=== PATIENT | female | born 1960 | race Caucasian/White ===

== ENCOUNTER 2017-04-20 20:29 | Observation (INO) ==
--- NOTE | 2017-04-20 20:51 | Emergency Department Note ---
Disposition Clinical Impression: Chest pain, History of hypertension, Abnormal EKG, Obesity, Family history of early CAD Disposition: Admitted As Inpatient Referrals: Dani Luna MD [Primary Care Provider] - Forms: ED Satisfaction Letter General Adult HPI - General Chief complaint: ED Chest Pain Stated complaint: CP Time Seen by Provider: 04/20/17 20:37 Source: patient, EMS Limitations: no limitations - History of Present Illness HPI Narrative: 57-year-old female reports emergency department complaining of left-sided chest pain. He pain radiated somewhat to the left arm. No history of weakness or numbness of the arms or legs or unilateral neurologic changes. No slurred speech or facial drooping. There is no history of tearing back pain. The pain started about an hour and a half ago. The patient has no known coronary artery disease but has a history of hypertension and a strong family history of coronary disease. She is a nonsmoker no diabetes no history of DVT PE or cancer. The patient denies trauma there is no pain when moving her chest. She has had some sharp inspiratory pain however. There is no history of back pain, no previous history of aneurysms. There is no history of leg swelling or pain coughing up blood or syncope. No coughing runny nose or ear pain or sore throat. There is no history of abdominal pain and vomiting or diarrhea. The patient denies acute anxiety or insomnia. The patient had a remote cardiac catheterization which was negative. She has never had a cardiac stent. The patient does not usually have chest pain. Pain Scale: 5 All systems ED: reviewed and negative except as stated. Past Medical History - Past Medical History Medical history: Reports: hypertension, thyroid disease Psychiatric history: Reports: no psych history - Social History Smoking Status: Never smoker Smokeless Tobacco Status: No Alcohol use: Reports: none Drug use: Reports: none Physical Exam - General Limitations: no limitations General appearance: alert, in no apparent distress - Head Head exam: atraumatic, normocephalic, normal inspection - Eye Eye exam: Present: normal appearance, PERRL, EOMI - ENT ENT exam: normal exam, normal oropharynx, mucous membranes moist, normal external ear exam - Neck Neck exam: Present: normal inspection, full ROM, trachea midline - Chest Chest inspection: Present: symmetric chest wall rise. Absent: tenderness - Respiratory Respiratory exam: Present: normal lung sounds bilaterally. Absent: respiratory distress, wheezes, accessory muscle use, prolonged expiratory phase - Cardiovascular Cardiovascular exam: Present: regular rate, normal rhythm, normal heart sounds - Abdominal Exam Abdominal exam: Present: soft, Non-Tender, normal bowel sounds. Absent: tenderness, distention, guarding, rebound, rigidity, pulsatile mass - Extremities Exam Extremities exam: Present: normal inspection, full ROM, normal capillary refill. Absent: tenderness, pedal edema, joint swelling, calf tenderness - Expanded Lower Extremity Exam Lower leg exam: Absent: Homans' sign Neurovascular/Tendon exam: Present: normal capillary refill. Absent: pulse deficit, motor deficit, sensory deficit, tendon deficit, extremity cold to touch , pallor - Back Exam Back exam: Present: normal inspection, full ROM. Absent: tenderness, CVA tenderness (R), CVA tenderness (L), vertebral tenderness - Neurological Exam Neurological exam: Present: alert, oriented X3, CN II-XII intact. Absent: motor sensory deficit - Psychiatric Psychiatric exam: Present: normal affect, normal mood - Skin Skin exam: Present: warm, dry, intact, normal color. Absent: rash, cyanosis, diaphoresis, erythema, pallor, mottled Course Vital Signs Temperature 98.6 F 04/20/17 20:30 Pulse Rate 89 04/20/17 20:30 Respiratory Rate 18 04/20/17 20:30 Blood Pressure 136/82 04/20/17 20:30 O2 Sat by Pulse Oximetry 98 04/20/17 20:30 Temperature 98.6 F 04/20/17 20:30 Pulse Rate 80 04/20/17 21:00 Respiratory Rate 22 04/20/17 21:00 Blood Pressure 148/80 04/20/17 21:00 O2 Sat by Pulse Oximetry 96 04/20/17 21:00 Oxygen Delivery Oxygen Delivery Room Air Medical Decision Making - [facility] Narrative Medical decision making narrative: The patient's chest pain is somewhat atypical, she received 4 aspirin in route as well as nitroglycerin. She reports nitroglycerin relieved her pain. The patient's EKG shows significant ST depressions in the anterior lateral leads. Significant changes from previous are noted. He patient has a strong family history of coronary disease, she is over 50, she is somewhat obese has a history of hypertension. Based on her chest pain, abnormal EKG, and noted risk factors for ACS, I thought it would be appropriate to admit the patient to the hospital. I discussed the case with the hospitalist who has accepted the patient to their care. - Lab Data Lab results reviewed: Yes I reviewed the patient's lab results. Result diagrams: 04/20/17 20:44 04/20/17 20:44 Lab Results 04/20/17 04/20/17 04/20/17 Range/Units 20:44 20:44 20:44 WBC 11.2 H (4.3-11.1) K/mcL RBC 4.65 (3.82-4.97) M/mcL Hgb 13.8 (11.5-15.4) g/dL Hct 40.6 (35.3-44.9) % MCV 87.3 (83.0-100.0) fL MCH 29.7 (28.0-33.3) pg MCHC 34.0 (31.6-35.5) g/dL RDW 12.1 (11.5-14.5) % Plt Count 355 (140-400) K/mcL MPV 9.4 (9.4-12.4) fL Immature Gran % 0.5 (0-4) % Seg Neutrophils % 53.5 % Lymphocytes % 35.5 % Monocytes % 8.0 % Eosinophils % 2.0 % Basophils % 0.5 % Neutrophils # 6.0 (1.6-8.9) K/mcL Lymphocytes # 4.0 (0.6-4.6) K/mcL Monocytes # 0.9 (0.0-1.3) K/mcL Eosinophils # 0.2 (0.0-0.6) K/mcL Basophils # 0.1 (0.0-0.2) K/mcL PT 10.6 (9.4-12.1) Seconds INR 1.0 APTT 31.2 (26.0-36.0) Seconds D-Dimer 408 (0-500) ng/mLFEU Sodium (136-145) mEq/L Potassium (3.5-4.5) mEq/L Chloride (98-109) mEq/L Carbon Dioxide (19-29) mEq/L BUN (7-20) mg/dL Creatinine (0.57-1.11) mg/dL Est GFR ( Amer) (> 60) Est GFR (Non-Af Amer) (> 60) BUN/Creatinine Ratio (6-26) Glucose (70-99) mg/dL Calculated Osmolality (280-300) Calcium (8.6-10.8) mg/dL Total Bilirubin 0.2 (0.2-1.2) mg/dL Direct Bilirubin 0.2 (0.0-0.5) mg/dL Indirect Bilirubin 0.0 (0.0-1.2) mg/dL AST 13 (5-34) Units/L ALT 12 (0-55) Units/L Alkaline Phosphatase 86 (38-126) Units/L C-Reactive Protein 7 H (Less than 5) mg/L Serum Total Protein 7.5 (6.0-8.3) g/dL Albumin 3.7 (3.5-5.0) g/dL Globulin 3.8 H (2.4-3.5) g/dL Albumin/Globulin Ratio 1.0 L (1.1-2.2) Lipase 59 (8-78) Units/L 11/20/17 Range/Units 20:44 WBC (4.3-11.1) K/mcL RBC (3.82-4.97) M/mcL Hgb (11.5-15.4) g/dL Hct (35.3-44.9) % MCV (83.0-100.0) fL MCH (28.0-33.3) pg MCHC (31.6-35.5) g/dL RDW (11.5-14.5) % Plt Count (140-400) K/mcL MPV (9.4-12.4) fL Immature Gran % (0-4) % Seg Neutrophils % % Lymphocytes % % Monocytes % % Eosinophils % % Basophils % % Neutrophils # (1.6-8.9) K/mcL Lymphocytes # (0.6-4.6) K/mcL Monocytes # (0.0-1.3) K/mcL Eosinophils # (0.0-0.6) K/mcL Basophils # (0.0-0.2) K/mcL PT (9.4-12.1) Seconds INR APTT (26.0-36.0) Seconds D-Dimer (0-500) ng/mLFEU Sodium 138 (136-145) mEq/L Potassium 3.6 (3.5-4.5) mEq/L Chloride 102 (98-109) mEq/L Carbon Dioxide 24 (19-29) mEq/L BUN 21 H (7-20) mg/dL Creatinine 0.87 (0.57-1.11) mg/dL Est GFR ( Amer) > 60 (> 60) Est GFR (Non-Af Amer) > 60 (> 60) BUN/Creatinine Ratio 24 (6-26) Glucose 112 H (70-99) mg/dL Calculated Osmolality 290 (280-300) Calcium 9.1 (8.6-10.8) mg/dL Total Bilirubin (0.2-1.2) mg/dL Direct Bilirubin (0.0-0.5) mg/dL Indirect Bilirubin (0.0-1.2) mg/dL AST (5-34) Units/L ALT (0-55) Units/L Alkaline Phosphatase (38-126) Units/L C-Reactive Protein (Less than 5) mg/L Serum Total Protein (6.0-8.3) g/dL Albumin (3.5-5.0) g/dL Globulin (2.4-3.5) g/dL Albumin/Globulin Ratio (1.1-2.2) Lipase (8-78) Units/L - Radiology Data Radiology results reviewed: Yes I reviewed the patient's radiology results.
[2017-04-20 21:05] LABS: Prothrombin Time 10.6 Seconds (9.4-12.1)
[2017-04-20 21:07] LABS: Activated Partial Thrombo Time 31.2 Seconds (26.0-36.0)
[2017-04-20 21:08] LABS: Basophils # 0.1 K/mcL (0.0-0.2); Basophils % 0.5 %; Eosinophils # 0.2 K/mcL (0.0-0.6); Hematocrit 40.6 % (35.3-44.9); Hemoglobin 13.8 g/dL (11.5-15.4); Immature Granulocytes % 0.5 % (0-4); Lymphocytes % 35.5 %; Mean Corpuscular Hemoglobin 29.7 pg (28.0-33.3); Mean Corpuscular Volume 87.3 fL (83.0-100.0); Mean Platelet Volume 9.4 fL (9.4-12.4); Monocytes # 0.9 K/mcL (0.0-1.3); Platelet Count 355 K/mcL (140-400); Red Blood Count 4.65 M/mcL (3.82-4.97); Red Cell Distribution Width 12.1 % (11.5-14.5); Segmented Neutrophils % 53.5 %
[2017-04-20 21:11] LABS: BUN/Creatinine Ratio 24 (6-26); Blood Urea Nitrogen 21 mg/dL (7-20); Calcium 9.1 mg/dL (8.6-10.8); Carbon Dioxide 24 mEq/L (19-29); Chloride 102 mEq/L (98-109); Glucose 112 mg/dL (70-99); Osmolality,Calculated 290 (280-300); Potassium 3.6 mEq/L (3.5-4.5); Sodium 138 mEq/L (136-145); eGFR For African Americans > 60 (> 60); eGFR For Non-African Americans > 60 (> 60)
[2017-04-20 21:15] LABS: Albumin 3.7 g/dL (3.5-5.0); Bilirubin,Direct 0.2 mg/dL (0.0-0.5); Bilirubin,Total 0.2 mg/dL (0.2-1.2); Globulin 3.8 g/dL (2.4-3.5); Total Protein 7.5 g/dL (6.0-8.3)
[2017-04-21] MEDS ORDERED: Naloxone 0.4 MG/ML INJ IVP PRN (02:32)
[2017-04-21] MEDS ORDERED: *HR* HYDROcodone/Acet 5/325 mg TABLET PO PRN (02:32)
[2017-04-21] MEDS ORDERED: Acetaminophen 325 MG TABLET PO PRN (02:32)
[2017-04-21] MEDS ORDERED: *HR* Morphine 2 MG/ML SYRINGE IVP PRN (02:32)
--- NOTE | 2017-04-21 02:39 | Internal Med History&Physical ---
Date of Encounter: 04/21/17 Time of Encounter: 02:36 Assessment and Plan (1) Chest pain Current visit: Yes Status: Acute EKG changes show ST depression < 0.5mm. Troponin negative CXR negative Obtain ECHO and stress test Obtain Lipid panel and A1C Nitro prn ASA 81 mg daily and Lipitor Patient has significant family history. Qualifiers: Chest pain type: unspecified Qualified Code(s): R07.9 - Chest pain, unspecified (2) HTN (hypertension) Current visit: Yes Status: Chronic Continue home meds Qualifiers: Hypertension type: essential hypertension Qualified Code(s): I10 - Essential (primary) hypertension (3) Obesity Current visit: Yes Status: Chronic Encourage lifestyle modification Qualifiers: Obesity classification: adult class 1 (BMI 30 - 34.9) Body mass index: BMI 32.0-32.9 Qualified Code(s): E66.9 - Obesity, unspecified; Z68.32 - Body mass index (BMI) 32.0-32.9, adult; Z68.32 - Body mass index (BMI) 32.0-32.9, adult (4) Hyperactive airway disease Current visit: Yes Status: Acute With bronchitis Start on azithromycin po Duoneb prn Recommend PFT on discharge Qualifiers: Asthma severity: unspecified severity Asthma persistence: unspecified Asthma complication type: uncomplicated Qualified Code(s): J45.909 - Unspecified asthma, uncomplicated Internal Medicine - H&P: HPI Chief complaint: Chest pain Admitted From: Home Plans for Post Hospital Care: Home History of present illness: Ms. Campbell is a 57 year old female with PMH of HTN, who presented complaining of left-sided chest pain. Pain is described as sharp, radiated to her L arm with no diaphoresis/nausea/shortness of breath. Chest pain started one hr prior to presentation and persisted till she received ASA and NTG. No known relieving or aggravating factors. No history of weakness or numbness of the arms or legs or unilateral neurologic changes. No slurred speech or facial drooping. She has strong family history of coronary disease, her suster had CVA in her thirties and her mum has CAD at unspecified age The patient is a lifetime non-smoker ROS revealed patient has been coughing for several days, she denies fever or chills, or sick contacts, she says she just thought it was the flu She has no leg swelling, unintentional weight loss or night sweats No neuro/GI/ symptoms Intial work up with non-specific ST changes, troponin negative She is wheezing actively on exam She denies prior hx of asthma/COPD Past Med Surg Social Fam HX - Past Medical History Medical history: hypertension, thyroid disease Psychiatric history: no psych history - Past Surgical History Surgical History: appendectomy - Social History Smoking Status: Never smoker Smokeless Tobacco Status: No Alcohol use: none Drug use: none - Family History Sister Hx Family Neurologic Disorders: Yes (CVA.) Internal Medicine - H&P: Meds Levothyroxine [Synthroid] 75 mcg PO QAM 04/20/17 [History] Losartan [Cozaar] 25 mg PO QAM 04/20/17 [History] Metoprolol [Lopressor] 100 mg PO HS 04/20/17 [History] Triamterene/HCTZ 37.5/25mg [Dyazide] 1 each PO QAM 04/20/17 [History] 3 Allergy/AdvReac Type Severity Reaction Status Date / Time ampicillin Allergy Hives Verified 04/20/17 22:01 All Systems PM: A 10-system review of systems was performed and is negative for pertinent findings except as documented above in the HPI. - Constitutional Constitutional: as per HPI - EENT Eyes: as per HPI Ears: as per HPI Nose, mouth and throat: as per HPI - Breasts Breasts: as per HPI - Cardiovascular Cardiovascular ROS IM: as per HPI - Respiratory Respiratory: as per HPI, no cough, no dyspnea, no wheezing, no excessive phlegm production - Gastrointestinal Gastrointestinal: as per HPI - Genitourinary Genitourinary: as per HPI - Musculoskeletal Musculoskeletal ROS IM: as per HPI - Integumentary Integumentary IM: as per HPI - Neurological Neurological ROS: as per HPI - Hematologic/Lymphatic Hematologic/Lymphatic: as per HPI - Constitutional Vitals: Temp Pulse Resp BP Pulse Ox 97.8 F 60 16 123/66 95 04/20/17 23:45 04/20/17 23:45 04/20/17 23:45 04/20/17 23:45 04/20/17 23:45 General appearance: Present: A&O X 3, pleasant, no acute distress, obese - Head Head exam: Present: atraumatic, normocephalic - Eye Eye exam: Present: PERRL, conjuntiva pink, sclera anicteric Pupils: Present: PERRL - Neck Neck exam general surgery: Present: supple, trachea midline. Absent: lymphadenopathy - Respiratory Respiratory exam: Present: wheezes. Absent: accessory muscle use, rales, rhonchi - Cardiovascular Cardiovascular exam: Present: RRR, +S1, +S2. Absent: diastolic murmur, gallop, rubs, systolic murmur - GI/Abdominal GI/Abdominal exam: Present: normal bowel sounds, soft, no peritoneal signs. Absent: distended, tenderness - Extremities Exam Extremities exam: Present: warm, radial pulses palpable and symmetrical. Absent : calf tenderness, cyanotic, pedal edema - Neurological Exam Neurological exam: Present: abnormal gait, CN II-XII intact, oriented X3, no focal deficits, strengths equal and symetr throughout. Absent: pronater drift, facial droop, speech deficit - Skin Skin exam: Present: dry, intact Internal Med - H&P Results - Labs CBC & Chem 7: 04/20/17 20:44 04/20/17 20:44
[2017-04-21] MEDS ORDERED: Ipratropium/Albuterol Neb 3 ML IH PRN (03:13)
[2017-04-21 03:51] LABS: Basophils # 0.1 K/mcL (0.0-0.2); Basophils % 0.7 %; Eosinophils # 0.2 K/mcL (0.0-0.6); Eosinophils % 1.8 %; Hemoglobin 13.1 g/dL (11.5-15.4); Immature Granulocytes % 0.5 % (0-4); Lymphocytes # 2.6 K/mcL (0.6-4.6); Lymphocytes % 29.6 %; Mean Corpuscular HGB Conc 33.6 g/dL (31.6-35.5); Mean Corpuscular Hemoglobin 29.6 pg (28.0-33.3); Mean Corpuscular Volume 88.2 fL (83.0-100.0); Mean Platelet Volume 9.3 fL (9.4-12.4); Monocytes # 0.7 K/mcL (0.0-1.3); Monocytes % 7.8 %; Neutrophils # 5.3 K/mcL (1.6-8.9); Platelet Count 349 K/mcL (140-400); Red Blood Count 4.42 M/mcL (3.82-4.97); Red Cell Distribution Width 12.1 % (11.5-14.5); Segmented Neutrophils % 59.6 %
[2017-04-21 04:02] LABS: Hemoglobin A1C 5.3 %
[2017-04-21 04:07] LABS: BUN/Creatinine Ratio 18 (6-26); Blood Urea Nitrogen 15 mg/dL (7-20); Carbon Dioxide 29 mEq/L (19-29); Chloride 103 mEq/L (98-109); Chol/HDL Ratio 4.6 (0-4.9); Cholesterol 202 mg/dL (< 200); Glucose 103 mg/dL (70-99); HDL Cholesterol 44 mg/dL (40-59); LDL Cholesterol,Calculated 133 mg/dL (0-99); Osmolality,Calculated 289 (280-300); Potassium 3.2 mEq/L (3.5-4.5); Sodium 139 mEq/L (136-145); Triglycerides 124 mg/dL (< 150); eGFR For African Americans > 60 (> 60); eGFR For Non-African Americans > 60 (> 60)
[2017-04-21] MEDS ORDERED: Azithromycin 250 MG TABLET PO SCH (09:00)
[2017-04-21] MEDS ORDERED: Aspirin Enteric Coated 81 MG Tablet PO SCH (09:00)
[2017-04-21 14:58] VITALS: BP 114/70
--- NOTE | 2017-04-21 16:53 | Discharge Summary ---
Date of Encounter: 04/21/17 Time of Encounter: 16:10 - Discharge Diagnosis (1) Chest pain Priority: Primary Status: Acute Comments: Patient presented to the emergency department with complaint of left-sided chest pain. She described it as sharp with radiation to her left arm. She denies any associated nausea, vomiting, shortness of breath, or diaphoresis. Chest pain onset 1 hour prior to arrival and was relieved with aspirin and nitroglycerin. There were no relieving or aggravating factors. Patient has extensive family history of coronary artery disease and her sister had CVA in her 30s. Patient is a nonsmoker. There is no peripheral edema weight gain. She does deny any neuro, GI, symptoms. She reports that she has had a nonproductive cough for several days without fever or chills. On initial presentation she had wheezing and posterior lung barry, today lungs are clear and diminished throughout. His recommended the patient have PFTs on discharge. Chest x-ray is negative. Patient has no leukocytosis. Troponins were negative 2. Hemoglobin A1c is 5.3%. Cholesterol 202, LDL 133. Patient will continue statin after discharge. Stress test was negative for ischemia or infarct, gated EF is greater than 70%. Echocardiogram shows LVEF of 55 with mild LVEDD, mild pulmonic regurgitation. Chest most likely due to bronchitis, chest wall pain from coughing. The patient will be sent home on antibiotics and will encourage PFTs after discharge , Tylenol or Motrin as needed for chest wall pain. Qualifiers: Chest pain type: unspecified Qualified Code(s): R07.9 - Chest pain, unspecified (2) History of hypertension Priority: Secondary Status: Chronic Comments: Blood pressure has been well controlled. Continue home medications. (3) Family history of early CAD Priority: Secondary Status: Chronic Comments: Patient without personal history. Stress test was negative. Continue aspirin, statin, beta eyal. (4) Hyperactive airway disease Priority: Secondary Status: Acute Comments: Patient with current bronchitis. Continue Zithromax by mouth and DuoNeb nebs as needed. Is recommended patient have PFTs on discharge. Lungs are clear diminished today. She denies cough. We will continue antibiotics after discharge. She is not requiring supplemental oxygen at this time. Qualifiers: Asthma severity: unspecified severity Asthma persistence: unspecified Asthma complication type: uncomplicated Qualified Code(s): J45.909 - Unspecified asthma, uncomplicated - Discharge Medications Prescriptions: Aspirin Enteric Coated [Aspirin EC] 81 mg PO DAILY #30 tablet. Atorvastatin [Lipitor] 40 mg PO HS #30 tablet Azithromycin [Zithromax] 250 mg PO DAILY #6 tablet Home Medications: Levothyroxine [Synthroid] 75 mcg PO QAM 04/20/17 [History] Losartan [Cozaar] 25 mg PO QAM 04/20/17 [History] Metoprolol [Lopressor] 100 mg PO HS 04/20/17 [History] Triamterene/HCTZ 37.5/25mg [Dyazide] 1 each PO QAM 04/20/17 [History] Aspirin Enteric Coated [Aspirin EC] 81 mg PO DAILY #30 tablet. 04/21/17 [Rx] Atorvastatin [Lipitor] 40 mg PO HS #30 tablet 04/21/17 [Rx] Azithromycin [Zithromax] 250 mg PO DAILY #6 tablet 04/21/17 [Rx] Allergies/Adverse Reactions: 3 Allergy/AdvReac Type Severity Reaction Status Date / Time ampicillin Allergy Hives Verified 04/20/17 22:01 Procedures/tests Complete & Pending: Procedures Performed prior 72 hours Category Date Time Status NM quintin perf SPECT multi [NM] Routine Exams 04/21/17 02:34 Taken EV echocardiogram Routine Y 04/21/17 02:33 Completed SP exercise nuclear stress Routine Y 04/21/17 07:15 Completed Date of admission: 04/20/17 23:04 Primary care physician: Dani Luna MD Discharging clinician: Ann Bey Anticipated date of discharge: 04/21/17 - Patient Status Disposition: Home, Self-Care Condition: Good Functional capacity at discharge: independent ambulation Overall status at discharge: patient is back to baseline - Discharge Instructions Follow Up With: Dani Luna MD [Primary Care Provider] - 04/28/17 3:00 pm (You appt will be at Dr. Luna's new office at [address] [place] [id number]) Additional Instructions: Please follow up with your PCP in the next 7-10 days for a hospital follow up. Please follow up for your PFTs as scheduled. Return to the ER as needed for any other problems or concerns. Return to your normal activities and diet as tolerated. Resume your normal home medications, RX x 3 have been called in to your pharmacy. Take as directed. - Diet and Activity Activity: increase activity as tolerated Diet: advance to your usual diet Interval History: Please see assessment and plan for hospital course. Hospital course: Ms. Campbell is a 57 year old female - Time Spent with Patient Total time spent providing and/or coordinating discharge services: - Constitutional Vitals: Temp Pulse Resp BP Pulse Ox 97.8 F 65 16 114/70 96 04/21/17 14:57 04/21/17 14:57 04/21/17 14:57 04/21/17 14:57 04/21/17 14:57 General appearance: Present: A&O X 3, pleasant, no acute distress, obese, answers questions appropriately - Head Head exam: Present: atraumatic, normal inspection, normocephalic - Eye Eye exam: Present: normal appearance, conjuntiva pink, sclera anicteric - Neck Neck exam general surgery: Present: normal inspection, supple, trachea midline. Absent: lymphadenopathy, tenderness - Respiratory Respiratory exam: Present: decreased breath sounds, CTAB. Absent: accessory muscle use, chest wall tenderness, rales, respiratory distress, rhonchi, wheezes - Cardiovascular Cardiovascular exam: Present: RRR, +S1, +S2. Absent: diastolic murmur, gallop, rubs, systolic murmur - GI/Abdominal GI/Abdominal exam: Present: normal bowel sounds, soft, no peritoneal signs. Absent: distended, hepatomegaly, tenderness - Extremities Exam Extremities exam: Present: normal capillary refill, normal inspection, pedal edema, warm, radial pulses palpable and symmetrical. Absent: calf tenderness, cyanotic Additional comments: Mild, +1 nonpitting edema to bilateral lower extremities. - Neurological Exam Neurological exam: Present: alert, oriented X3, no focal deficits. Absent: facial droop, speech deficit - Skin Skin exam: Present: dry, intact, normal color, warm. Absent: rash
[2017-04-21] MEDS ORDERED: Metoprolol 100 MG TABLET PO SCH (21:00)
--- NOTE | 2017-04-22 19:57 | Electrocardiograph Report ---
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
== END 2017-04-21 17:54 | disposition home or self-care (01) ==
LOC: EMEROO 20:29 → 3BNU 20:29
PROVIDERS: ADMIT Internal Medicine; ATTEND Registered Nurse